=== PATIENT | male | born 1980 | race Caucasian/White ===

== ENCOUNTER 2020-08-09 02:07 | Emergency (ER) | payer OTHER, SELFPAY ==
[2020-08-09 02:16] VITALS: BP 197/120; PULSE 123; RESP 16; TEMP 36.2; O2SAT 96; BMI 28.5
--- NOTE | 2020-08-09 02:49 | ED_ITS ---
HPI - Psych General Chief Complaint: Psychiatric Symptoms Stated Complaint: SI Time Seen by Provider: 08/09/20 02:43 Source: patient and EMS Mode of arrival: EMS History of Present Illness HPI Narrative: 40-year-old male brought in for suicidal ideations. Patient was found on the bridge thought of jumping. Patient has high anxiety and is not willing to answer full questions at this point. Will re-evaluate due to limited HPI If self harm: admits thoughts of self harm Related Data Allergies Allergy/AdvReac Type Severity Reaction Status Date / Time No Known Allergies Allergy Unverified 06/03/20 15:23 Review of Systems Review of Systems: Constitutional : No Weight loss, No Fever, No Chills, No Night Sweats, No Fatigue, No Malaise ENT/Mouth : No Hearing loss, No Ear Pain, No Nasal Congestion, No Sinus Pain, No Hoarseness, No sore throat, No Rhinorrhea, No Swallowing Difficulty Eyes: No Eye Pain, No Swelling, No Redness, No Foreign Body, No Discharge, No Vision Changes Cardiovascular : No Chest Pain, No SOB, No Dyspnea on Exertion, No Orthopnea, No Edema, No Palpitations Respiratory : No Cough, No Sputum, No Wheezing, No Smoke Exposure, No Dyspnea Gastrointestinal : No Nausea, No Vomiting, No Diarrhea, No Constipation, No abdominal Pain, No Hematochezia, No Melena Genitourinary : no irregular bleeding, No Dysuria, No Urinary Frequency, No Hematuria, No Urinary Incontinence, No Urgency, No Flank Pain, No Urinary Flow Changes, No Hesitancy Musculoskeletal : No joint pain, No Myalgias, No Joint Swelling Skin : No Skin Lesions, No rash Neuro : No Weakness, No Numbness, No Paresthesias, No Loss of Consciousness, No Dizziness, No Headache Psych : Positive Anxiety/Panic, No Depression, positive SI/HI/AH/VH, No Social Issues, Heme/Lymph: No Bruising, No Bleeding,No Lymphadenopathy Endocrine : No Polyuria, No Polydipsia, No Temperature Intolerance [facility] Past Medical History Medical History (Updated 08/09/20 @ 02:55 by Dru Reynoso DO) Anxiety Family History Family History (Updated 08/09/20 @ 02:51 by Dru Reynoso DO) Other Family history non-contributory Social History Social History Advance Directives: No Advance Directives Information Provided: No Physical Exam Vital Signs: Vital Signs: Last Vital Signs Temp 97.5 F 08/09/20 06:00 Pulse 98 08/09/20 06:00 Resp 18 08/09/20 06:00 BP 141/106 H 08/09/20 06:00 Pulse Ox 98 08/09/20 06:00 Body Mass Index 28.5 Vital signs reviewed Appearance: Alert. Oriented X3. Highly anxious Eyes: Pupils equal, round and reactive to light. ENT: Pharynx normal. Neck: Normal inspection. Neck supple. No lymph nodes noted. No crepitus CVS: Normal heart rate and rhythm. Pulses normal. Normal S1 and S2 Respiratory: No respiratory distress. Breath sounds normal. No Wheezing. No rales Abdomen: Soft and nontender. No rigidity. No distention. good BS x4 Skin: Skin warm and dry. Normal skin color. Normal skin turgor. Extremities: No lower extremity edema. Neurovascular intact to all extremities. No Lacerations. No Rash Neuro: Oriented X 3. No motor deficit. No sensory deficit. Moving all extermities. No slurred speech. Course Course Course Narrative: Further evaluation patient states is from his however has been drinking vodka a lot recently. At some point is found phone numbers of other women, she then approached him and he denied having any type of affairs however was also very ashamed that he cannot remember any event this point appears very depressed and wanted to end his life Reevaluation(s) Reevaluation #1: Sign-out given to Dr. Hennessy [facility] - Psych Restraints Face to Face Assessment: Face to Face Assessment: Current Situation: After assessment of the patient, a review of the pertinent medical record and a discussion with nursing staff, I feel the patient requires a restrain intervention. Reaction To: [] Medical Condition: [] Behavioral State: [] Continued Need: [] Lab Data Labs: Lab Results 08/09/20 Range/Units 03:10 Urine Opiates Screen Not Detected (Not Detect) Ur Barbiturates Screen Not Detected (Not Detect) Ur Phencyclidine Scrn Not Detected (Not Detect) Ur Amphetamines Screen Not Detected (Not Detect) U Benzodiazepines Scrn Not Detected (Not Detect) Urine Cocaine Screen Not Detected (Not Detect) U Marijuana (THC) Screen POSITIVE H (Not Detect) Discharge Plan Discharge Clinical Impression: Acute anxiety
[2020-08-09] MEDS: LORazepam 1 MG TABLET PO (03:16)
--- NOTE | 2020-08-09 03:16 | PC.NURSE ---
URINE SPECIMEN COLLECTED AND SENT FOR ANALYSIS. AWAITING RESULTS. PATIENT'S BELONGINGS SECURED IN ED POD, LOCKER #7. CHANGEOVER TO HOSPITAL ATTIRE COMPLETED.
[2020-08-09 03:33] LABS: Amphetamine Screen Urine Not Detected (Not Detect); Barbiturates, Urine Not Detected (Not Detect); Benzodiazepines Screen Urine Not Detected (Not Detect); Cannabinoid Screen Urine POSITIVE (Not Detect); Cocaine Screen Urine Not Detected (Not Detect); Opiate Screen Urine Not Detected (Not Detect); Phencyclidine Screen Urine Not Detected (Not Detect)
--- NOTE | 2020-08-09 03:35 | PC.NURSE ---
KESHAVN faxed and called Sitter at bedside for safety, belongings locked in POD.
[2020-08-09 06:00] VITALS: BP 141/106; PULSE 98; RESP 18; TEMP 36.4; O2SAT 98
--- NOTE | 2020-08-09 07:27 | PC.NURSE ---
PT IS A/O X 3 NO SOB/GOKUL NOTED SKIN PINK WARM DRY SPEAKS IN FULL SENTENCES. PACING EARLIER. PT DENIES ANY SI/HI AND STATES THAT HE DOES NOT WANT TO BE HERE BUT HE UNDERSTANDS THAT HE NEEDS TO SPEAK WITH [facility]. PT REFUSED BREAKFAST AT THIS TIME.
--- NOTE | 2020-08-09 07:40 | PC.NURSE ---
THIS RN CALLED [facility] AT [phone] RE: ETA FOR [facility]. THIS RN SPOKE WITH ZHANE ([facility]) WHO STATED THAT ETA IS AFTER 0900 THIS AM.
[2020-08-09 10:00] VITALS: BP 156/103; PULSE 93; RESP 16
== END 2020-08-09 10:36 | disposition home or self-care (01) ==
PROVIDERS: Emergency Provider Emergency Medicine; PCP Pediatrics
DX: F41.1 Generalized anxiety disorder (principal); R45.851 Suicidal ideations
CPT/HCPCS: 80307; 99284; 99285